=== PATIENT | female | born 1980 | race African-American/Black ===

== ENCOUNTER 2019-11-13 10:53 | Emergency (ER) | payer OTHER ==
[~2019-11-13] VITALS: Ht 172.7 cm; Wt 73.9 kg
--- NOTE | ~2019-11-13 | EMS ---
[facility] [address] [place] [address] EMS Patient Care Report Name: SONDRA SOLIZ Room #: PRE MVera#: [id number] Admission: Attend Phys: Discharge: Date of : 76 Report #: [id number] THIS REPORT FOR: //name// Report Transmitted: 11/13/2019 10:28 EMS Care Summary [place], [place]/[facility] Incident [id number] @ 11/13/2019 10:15 Incident [address] [place] [id number] Patient SONDRA SOLIZ Female, 38 Years 1980 Patient Address [address] [place] [id number] Patient History Breast Cancer, Patient Allergies No known allergies, Patient Medications None Reported, Chief Complaint Abdominal Pain Disposition Transported No Lights/[place] Dispatch Reason Sick Person Transported To [facility] Narrative m36 was dispatched to a sick. M36 arrived on scene to find female pt walking toward the ambulance with duuin muff winder. Pt advised she was having some [facility] [address] [place] [address] EMS Patient Care Report Name: SONDRA SOLIZ Room #: PRE Katrin#: [id number] Admission: Attend Phys: Discharge: Date of : 76 Report #: [id number] abdominal pain for the past few days and also said she had been having N/V since this morning. Pt advised she wanted to be transported to [facility]. Pt had a baseline of set of vitals established and had an 18G iv placed and received 2mg of Zofran. Pt was transported to [facility] nonemergent. Pt care was transferred to RN. M36 Initial Vitals @10:32P: 73,R: 16,BP: 100/63,Pain: 2/10,GCS: 15,CO: 4,SpO2: 100,Revised Trauma: 12, @10:41P: 61,R: 16,BP: 113/76,Pain: 2/10,GCS: 15,CO: 8,SpO2: 96,Revised Trauma: 12, Assessments @10:26MENTAL:Person Oriented,Time Oriented,Place Oriented,Event Oriented,SKIN:HEENT:Head/Face: No Abnormalities,Neck/Airway: No Abnormalities,LUNG SOUNDS:General: Diarrhea,General: Vomiting,General: Nausea,ABDOMEN:General: Diarrhea,General: Vomiting,General: Nausea,PELVIS//GI:No Abnormalities,EXTREMITIES:Left Arm: No Abnormalities,Right Arm: No Abnormalities,Left Leg: No Abnormalities,Right Leg: No Abnormalities,PULSE:Radial: 2+ Normal,NEURO: Impression Abdominal Pain Procedures @10:26ALS AssessmentResponse: UnchangedSucceeded@10:28Saline Lock 10cc (18 ga) Site: Antecubital-RightResponse: UnchangedSucceeded@10:30Zofran - 2 Milligrams (mg) - Intravenous (IV)Response: Improved Timeline 10:13,Call Received 10:13,Dispatch Notified 10:15,Dispatched 10:17,En Route 10:26,At Patient 10:26,On Scene 10:26,ALS Assessment,Response: UnchangedSucceeded, 10:28,Saline Lock 10cc 18 ga Site: Antecubital-Right,Response: UnchangedSucceeded, 10:30,Zofran - 2 Milligrams (mg) - Intravenous (IV),Response: Improved 10:32,BP: 100/63 M,PULSE: 73,RR: 16 R,SPO2: 100 Ox,ETCO2: ,BG: ,PAIN: 2,GCS: 15, 10:34,Depart Scene 10:41,BP: 113/76 M,PULSE: 61,RR: 16 R,SPO2: 96 Ox,ETCO2: ,BG: ,PAIN: 2,GCS: 15, 10:47,At Destination 11:07,Call Closed [facility] [address] [place] [address] EMS Patient Care Report Name: SONDRA SOLIZ Room #: PRE ER M.R.#: [id number] Admission: Attend Phys: Discharge: Date of : 76 Report #: [id number] Disclaimer [email or web address] Copyright 2020 [employer] This EMS Care Summary contains data elements from the applicable legal record (which may be displayed differently). It is designed to provide pertinent information for the following purposes: continuity of care, clinical quality, and state data reporting. The complete legal record is available to ED staff and administrators of the receiving hospital in [employer]'s Patient Tracker. All data is provided "as is."
[2019-11-13 11:10] LABS: BASOPHILS 0.3 % (0.0-2.0); EOSINOPHILS 1.3 % (0.0-3.0); HEMATOCRIT 30.7 % (37.0-47.0); LYMPHOCYTES 24.9 % (24.0-44.0); MCH 29.1 pg (26.0-34.0); MCHC 32.7 g/dL (28.0-37.0); MCV 88.8 fL (80.0-100.0); MONOCYTES 8.4 % (1.0-8.0); PLATELET COUNT 190 thou/uL (150-400); POLYS 65.1 % (36.0-66.0); RBC 3.45 mil/uL (4.20-5.00); RDW 13.5 % (10.5-14.5); WBC 4.5 thou/uL (4.0-11.0)
[2019-11-13 11:21] LABS: CALCIUM 8.5 mg/dL (8.5-10.1); CREATININE 1.1 mg/dL (0.6-1.0); POTASSIUM 3.3 mmol/L (3.5-5.1)
[2019-11-13 11:26] LABS: ALBUMIN 3.1 g/dL (3.4-5.0); TOTAL BILIRUBIN 0.2 mg/dL (<0.1-1.0); TOTAL PROTEIN 6.9 g/dL (6.4-8.2)
[2019-11-13 12:44] LABS: URINE BILIRUBIN NEGATIVE (Negative); URINE BLOOD NEGATIVE (Negative); URINE CLARITY CLEAR; URINE COLOR YELLOW; URINE GLUCOSE-RANDOM* NEGATIVE (Negative); URINE KETONES 1+ (Negative); URINE LEUKOCYTES-REFLEX NEGATIVE (Negative); URINE NITRITE-REFLEX NEGATIVE (Negative); URINE PROTEIN (DIPSTICK) NEGATIVE (Negative); URINE SPECIFIC GRAVITY 1.015 (1.005-1.035); URINE UROBILINOGEN 0.2 E.U./dl (0.2-1.0)
[2019-11-13 12:50] LABS: SSA (PROTEIN CONFIRMATORY) NEGATIVE (Negative)
[2019-11-13] MEDS ORDERED: ZOFRAN ODT4 MG DISSOLVE (13:15)
[2019-11-13] MEDS ORDERED: NORCO 5-325 TA1 EAC1 PO (13:15)
[2019-11-13] MEDS ORDERED: NAPROSYN500 MG PO (13:15)
[2019-11-13 13:25] VITALS: BP 108/88
--- NOTE | 2019-11-13 13:27 | EKG ---
[facility] [place] [address] ELECTROCARDIOGRAM REPORT Name: SONDRA SOLIZ Room #: [facility]US[facility] [id number] Admission: 11/13/19 Attend Phys: Discharge: Date of : 76 Report #: [id number] THIS REPORT FOR: cc: ERMIAS - Anaid family physician/PCP ERMIAS - Anaid family physician/PCP Dhiraj Salazar MD ~ THIS REPORT FOR: //name// [facility] ED Test Date: 2019-11-13 Test Time: 11:15:08 Pat Name: SONDRA SOLIZ Department: Room: Gender: F Interior Design Assistant: : 1980 Requested By: Saskia Hill Order Number: [id number] MD: Dhiraj Salazar Measurements Intervals [place] Rate: 73 P: 41 ME: 144 QRS: 24 QRSD: 93 T: 47 QT: 385 QTc: 425 Interpretive Statements Sinus rhythm No previous ECG available for comparison Electronically Signed On 11-13-2019 13:25:27 CDT by Dhiraj Salazar [email or web address] <ELECTRONICALLY SIGNED> By: Dhiraj Salazar MD 11/13/19 1325 [id number] [id number] MD KENNETH Isaac
== END 2019-11-13 13:53 | disposition home or self-care (01) ==
LOC: ER 10:53
PROVIDERS: Physician Assistant
DX: E86.0 Dehydration (principal); R10.31 Right lower quadrant pain; F17.210 Nicotine dependence, cigarettes, uncomplicated; Z85.3 Personal history of malignant neoplasm of breast